=== PATIENT | male | born 1985 | race Caucasian/White ===

== ENCOUNTER 2018-08-16 13:32 | Emergency (ER) | payer OTHER ==
[~2018-08-16] VITALS: Ht 180.3 cm; Wt 77.3 kg
[2018-08-16] MEDS ORDERED: NAPROSYN500 MG PO (15:16)
[2018-08-16 15:18] VITALS: BP 146/99
== END 2018-08-16 15:35 | disposition home or self-care (01) | DRG 558 ==
LOC: ED 13:32
DX: M76.9 Unspecified enthesopathy, lower limb, excluding foot (principal); F17.210 Nicotine dependence, cigarettes, uncomplicated; X50.0XXA Overexertion from strenuous movement or load, initial encounter; Y93.89 Activity, other specified; Y92.79 Other farm location as the place of occurrence of the external cause; Y99.0 Civilian activity done for income or pay
CPT/HCPCS: L1830